=== PATIENT | female | born 1930 | race Caucasian/White ===

== ENCOUNTER 2017-02-03 09:41 | Emergency (ER) | payer OTHER ==
[~2017-02-03] VITALS: Ht 152.4 cm; Wt 90.0 kg
[~2017-02-03 09:41] MED LIST: CHOL1TAB PO; CLTP PO; DENO60SO SQ; DIPH25CA37 PO; GABA-112 PO; ISOS30TA3 PO; MULT-506 PO; POLY335025 PO; PRLSR20 PO; RANI300T2 PO; SIMV20TA2 PO
[2017-02-03 09:50] VITALS: TEMP 36.4; Ht 152.4 cm; Wt 90.0 kg
[2017-02-03] MEDS ORDERED: CALCTAB7 PO (10:16)
[2017-02-03] MEDS ORDERED: CHOL1000 PO (10:18)
[2017-02-03] MEDS ORDERED: LISI-789 PO (10:23)
[2017-02-03] MEDS ORDERED: AMLO2.5T PO (10:26)
[2017-02-03] MEDS ORDERED: ASPI81TA28 PO (10:26)
[2017-02-03] MEDS ORDERED: MAGN400T6 PO (10:26)
[2017-02-03 10:34] VITALS: O2SAT 95
[2017-02-03 10:57] LABS: BASO % 0.1 %; BASO ABS # 0.01 K/uL (0-0.2); COMPLETE YES; IG% 0.4 %; LYMPH ABS # 2.01 K/uL (1.2-3.4); MEAN CELL VOLUME 94.7 fL (80-100); MEAN CORPUSCULAR HEMOGLOBIN 32.8 pg (25-34); MEAN CORPUSCULAR HGB CONC 34.6 g/dl (32-36); MEAN PLATELET VOLUME 8.8 fL (7.4-10.4); MONO % 10.8 %; NEUT % 69.7 %; PLATELET COUNT 250 K/uL (130-400); RED BLOOD COUNT 4.33 M/uL (4.2-5.4); WHITE BLOOD COUNT 11.16 K/uL (4.8-10.8)
[2017-02-03] MEDS ORDERED: SODIUM CHLORIDE 0.9% 500ML 500 ML IV STA (11:10)
[2017-02-03 11:18] LABS: CALCIUM 8.9 mg/dl (8.5-10.1); CREATININE 0.8 mg/dl (0.60-1.20); POTASSIUM 4.2 mmol/L (3.5-5.1)
[2017-02-03 11:44] LABS: URINE APPEARANCE CLEAR (CLEAR); URINE BILIRUBIN NEG (NEG); URINE COLOR DK YELLOW; URINE NITRITE NEG (NEG); URINE SPECIFIC GRAVITY 1.011 (1.000-1.030); UROBILINOGEN NEG (NEG); ZZUR CULT IF INDIC CLEAN CATCH NO
[2017-02-03 11:50] LABS: MANUAL MICROSCOPIC REQUIRED? NO; REVIEW REQ? NO
--- NOTE | 2017-02-03 12:06 | DIAGNOSTIC IMAGING REPORT ---
CT SCAN OF THE ABDOMEN AND PELVIS WITHOUT IV CONTRAST CLINICAL HISTORY: Lower abdominal pain. COMPARISON STUDY: Abdominal CT dated 01/06/2014. TECHNIQUE: CT scan of the abdomen and pelvis is performed from the lung bases to the proximal femora. Images are reviewed in the axial, sagittal, and coronal planes. IV contrast was not administered for this examination as per the referring clinician. Note that the examination was performed in suboptimal fashion but oral and IV contrast. Automated dose control exposure was utilized. CT DOSE: 863.07 mGy.cm FINDINGS: Lung bases: The heart is mildly enlarged and without pericardial effusion. There are coronary calcifications. There is mixed attenuation of the cardiac blood pool as compared to the myocardium suggesting anemia. A small hiatal hernia is noted. The lung bases are clear noting dependent atelectasis. Liver: The unenhanced liver is top normal in size and normal in contour. The liver demonstrates diffusely diminished attenuation consistent with mild hepatic steatosis. Fatty sparing is noted adjacent to the gallbladder fossa. There is no intrahepatic biliary ductal dilatation. Gallbladder: Unremarkable. Spleen: Normal in size and attenuation. Pancreas: There is moderate glandular atrophy of the pancreas. Coarse calcifications are noted in the pancreatic head suggesting chronic pancreatitis. There is a 2.7 x 3.0 cm lobulated water attenuation lesion identified in the distal pancreatic body/tail seen on image #98. The pancreatic duct is normal in caliber. Adrenal glands: Unremarkable. Kidneys: The unenhanced kidneys are atrophic and without hydronephrosis. There are no renal calculi identified. There is no evidence of contour deforming renal mass lesion. Abdominal vasculature: The abdominal aorta is normal in course and caliber noting mild atherosclerotic calcification. Bowel: No bowel obstruction is seen. There is moderate sigmoid diverticulosis without CT evidence of acute diverticulitis. Mild diverticular disease is noted throughout the remainder of the colon. There is a ventral hernia containing a nonobstructed segment of the transverse colon. Aoxc-[id number] colonic fecal retention is observed. The appendix is not identified and reported surgically absent. Peritoneum: There is no intraperitoneal free air or abdominal ascites. Lymphadenopathy: None. Pelvic viscera: The bladder is normal as visualized. The uterus is surgically absent. No adnexal lesion is seen. There are numerous calcified pelvic phleboliths. Skeletal structures: The skeletal structures are osteopenic. There is moderate lumbosacral spondylosis as well as scoliosis. A moderate chronic compression deformity is again seen involving L1. Vertebral body height is otherwise maintained throughout the lumbar spine. Grade 1 anterolisthesis is seen at L5-S1. No lytic or blastic lesions are seen. IMPRESSION: 1. Suboptimal examination without oral and IV contrast. 2. There are no acute infectious or inflammatory findings in the abdomen or pelvis. 3. Moderate colonic diverticulosis without CT evidence of acute diverticulitis. 4. A ventral hernia contains a nonobstructed segment of the transverse colon. 5. There is a 3.0 cm lobulated water density lesion in the distal pancreatic body/tail. This is much more conspicuous than on the 2014 examination, and the appearance suggests a mucinous cystic neoplasm, a serous cystadenoma, or a large IPMN. This is not consistent with a pancreatic adenocarcinoma. A nonemergent pancreas protocol CT scan or MRI could be obtained for further interrogation. Alternatively, endoscopic ultrasound with biopsy would be more definitive. 6. Mild hepatic steatosis. 7. Additional changes as above. Electronically signed by: Rg Alfaro M.D. 02/03/2017 12:05 PM Dictated Date/Time: 02/03/2017 11:54 AM
[2017-02-03 13:15] VITALS: BP 98/63; PULSE 65; O2SAT 96
--- NOTE | 2017-02-03 17:51 | EMERGENCY ROOM VISIT NOTE ---
History Report prepared by Han: Jennie Edgar Under the Supervision of: Dr. Miguel Patrick D.O. First contact with patient: 10:56 Chief Complaint: OTHER COMPLAINT Stated Complaint: SHAKES History of Present Illness The patient is a 86 year old female who presents to the Emergency Room with complaints of persistent shakiness starting 0815 this morning. She reports that as she was leaving her home, she started shaking so severely that she almost fell. She did not fall. She called the doctor's office who told her to present to the ED. She has never experienced this shaking before. She shaking was present mostly in the upper part of her body. She was talking and making sense to her family. She feels better now, but not completely normal. She reports she has not been eating well for the past 1-2 weeks because she has been feeling bloated and nauseous after eating. She denies any cough, rhinorrhea, headache, dizziness, sore throat, vomiting, diarrhea, dysuria, melena, chest pain, SOB, weakness or numbness in arms or legs. She had a bowel movement this morning which was normal. She takes aspirin daily. Patient has no other complaints with the exception of feeling shaky. Source of History: patient Onset: 0815 this morning Position: other (global) Quality: other (shaking) Timing: other (persistent) Associated Symptoms: No SOB, No chest pain, No cough, No diarrhea, No headache, No melena, No nausea, No numbness, No sorethroat, No vomiting, No weakness Review of Systems See HPI for pertinent positives & negatives. A total of 10 systems reviewed and were otherwise negative. Past Medical & Surgical Medical Problems: (1) HTN (hypertension) Family History Diabetes mellitus FH: cancer FH: heart disease FH: lung disease Hypertension Kidney disease or stones Social History Smoking Status: Never Smoker Alcohol Use: none Drug Use: none Marital Status: Housing Status: lives with family Current/Historical Medications Scheduled Amlodipine (Norvasc), 2.5 MG PO DAILY Aspirin (Aspirin Ec), 81 MG PO DAILY Calcium Carbonate-Vitamin D W/ (Caltrate 600 Plus), 1 TAB PO DAILY Cholecalciferol (Vitamin D3), 1 TAB PO DAILY Denosumab (Prolia), 60 MG SQ [id number] Isosorbide Mononitrate Ext Rel (Imdur Ext Rel), 30 MG PO QAM Lisinopril (Zestril), 2.5 MG PO DAILY Magnesium Oxide (Mag-Ox), 400 MG PO DAILY Multivitamin (Multivitamin), 1 TAB PO DAILY Omeprazole (Prilosec), 20 MG PO DAILY Ranitidine (Zantac), 300 MG PO HS Scheduled PRN Polyethylene Glycol 3350 (Miralax), 1 TBS PO DAILY PRN for Constipation Allergies Coded Allergies: Iodinated Contrast Media (Verified Allergy, Unknown, HIVES, 02/03/17) Levofloxacin (Unverified Allergy, Unknown, HIVES, 02/03/17) Sulindac (Unverified Allergy, Unknown, HIVES, 02/03/17) Sulfa Drugs (Verified Adverse Reaction, Mild, YEAST INFECTION, 02/03/17) Physical Exam Vital Signs Date Time Temp Pulse Resp B/P Pulse Ox O2 Delivery O2 Flow Rate FiO2 02/03/17 13:15 65 22 98/63 96 02/03/17 12:21 62 02/03/17 12:16 67 22 112/68 96 Room Air 02/03/17 11:31 63 22 116/71 97 Room Air 02/03/17 10:34 95 Room Air 02/03/17 10:04 63 02/03/17 09:50 36.4 72 16 127/79 95 Room Air Physical Exam GENERAL: Sitting up in bed, no acute distress, nontoxic. EYE EXAM: normal conjunctiva, PERRL and EOM's intact OROPHARYNX: no exudate, no erythema, lips, buccal mucosa, and tongue normal and mucous membranes are moist NECK: supple, no nuchal rigidity, no adenopathy, non-tender LUNGS: Clear to auscultation. Normal chest wall mechanics HEART: no murmurs, S1 normal and S2 normal ABDOMEN: abdomen soft, non-tender, normo-active bowel sounds, no masses, no rebound or guarding. BACK: Back is symmetrical on inspection and there is no deformity, no midline tenderness, no CVA tenderness. SKIN: no rashes and no bruising UPPER EXTREMITIES: upper extremities are grossly normal. LOWER EXTREMITIES: No pitting edema. NEURO EXAM: Normal sensorium, cranial nerves II-XII intact, normal speech, no weakness of arms, no weakness of legs. No drift. Finger to nose intact. Gross sensation intact. Medical Decision & Procedures ER Provider Diagnostic Interpretation: Radiology results have been interpreted by the radiologist and reviewed by me. CT SCAN OF THE ABDOMEN AND PELVIS WITHOUT IV CONTRAST CLINICAL HISTORY: Lower abdominal pain. COMPARISON STUDY: Abdominal CT dated 01/06/2014. TECHNIQUE: CT scan of the abdomen and pelvis is performed from the lung bases to the proximal femora. Images are reviewed in the axial, sagittal, and coronal planes. IV contrast was not administered for this examination as per the referring clinician. Note that the examination was performed in suboptimal fashion but oral and IV contrast. Automated dose control exposure was utilized. CT DOSE: 863.07 mGy.cm FINDINGS: Lung bases: The heart is mildly enlarged and without pericardial effusion. There are coronary calcifications. There is mixed attenuation of the cardiac blood pool as compared to the myocardium suggesting anemia. A small hiatal hernia is noted. The lung bases are clear noting dependent atelectasis. Liver: The unenhanced liver is top normal in size and normal in contour. The liver demonstrates diffusely diminished attenuation consistent with mild hepatic steatosis. Fatty sparing is noted adjacent to the gallbladder fossa. There is no intrahepatic biliary ductal dilatation. Gallbladder: Unremarkable. Spleen: Normal in size and attenuation. Pancreas: There is moderate glandular atrophy of the pancreas. Coarse calcifications are noted in the pancreatic head suggesting chronic pancreatitis. There is a 2.7 x 3.0 cm lobulated water attenuation lesion identified in the distal pancreatic body/tail seen on image #98. The pancreatic duct is normal in caliber. Adrenal glands: Unremarkable. Kidneys: The unenhanced kidneys are atrophic and without hydronephrosis. There are no renal calculi identified. There is no evidence of contour deforming renal mass lesion. Abdominal vasculature: The abdominal aorta is normal in course and caliber noting mild atherosclerotic calcification. Bowel: No bowel obstruction is seen. There is moderate sigmoid diverticulosis without CT evidence of acute diverticulitis. Mild diverticular disease is noted throughout the remainder of the colon. There is a ventral hernia containing a nonobstructed segment of the transverse colon. Fhed-rs-[id number] colonic fecal retention is observed. The appendix is not identified and reported surgically absent. Peritoneum: There is no intraperitoneal free air or abdominal ascites. Lymphadenopathy: None. Pelvic viscera: The bladder is normal as visualized. The uterus is surgically absent. No adnexal lesion is seen. There are numerous calcified pelvic phleboliths. Skeletal structures: The skeletal structures are osteopenic. There is moderate lumbosacral spondylosis as well as scoliosis. A moderate chronic compression deformity is again seen involving L1. Vertebral body height is otherwise maintained throughout the lumbar spine. Grade 1 anterolisthesis is seen at L5-S1. No lytic or blastic lesions are seen. IMPRESSION: 1. Suboptimal examination without oral and IV contrast. 2. There are no acute infectious or inflammatory findings in the abdomen or pelvis. 3. Moderate colonic diverticulosis without CT evidence of acute diverticulitis. 4. A ventral hernia contains a nonobstructed segment of the transverse colon. 5. There is a 3.0 cm lobulated water density lesion in the distal pancreatic body/tail. This is much more conspicuous than on the 2014 examination, and the appearance suggests a mucinous cystic neoplasm, a serous cystadenoma, or a large IPMN. This is not consistent with a pancreatic adenocarcinoma. A nonemergent pancreas protocol CT scan or MRI could be obtained for further interrogation. Alternatively, endoscopic ultrasound with biopsy would be more definitive. 6. Mild hepatic steatosis. 7. Additional changes as above. Electronically signed by: Rg Alfaro M.D. 02/03/2017 12:05 PM Dictated Date/Time: 02/03/2017 11:54 AM Laboratory Results 02/03/17 10:43 Red Blood Count 4.33, Mean Corpuscular Volume 94.7, Mean Corpuscular Hemoglobin 32.8, Mean Corpuscular Hemoglobin Concent 34.6, Mean Platelet Volume 8.8, Neutrophils (%) (Auto) 69.7, Lymphocytes (%) (Auto) 18.0, Monocytes (%) (Auto) 10.8, Eosinophils (%) (Auto) 1.0, Basophils (%) (Auto) 0.1, Neutrophils # (Auto ) 7.78, Lymphocytes # (Auto) 2.01, Monocytes # (Auto) 1.21, Eosinophils # (Auto ) 0.11, Basophils # (Auto) 0.01 02/03/17 10:43 Test 02/03/17 10:43 02/03/17 11:25 White Blood Count 11.16 K/uL (4.8-10.8) Red Blood Count 4.33 M/uL (4.2-5.4) Hemoglobin 14.2 g/dL (12.0-16.0) Hematocrit 41.0 % (37-47) Mean Corpuscular Volume 94.7 fL (80-100) Mean Corpuscular Hemoglobin 32.8 pg (25-34) Mean Corpuscular Hemoglobin Concent 34.6 g/dl (32-36) Platelet Count 250 K/uL (130-400) Mean Platelet Volume 8.8 fL (7.4-10.4) Neutrophils (%) (Auto) 69.7 % Lymphocytes (%) (Auto) 18.0 % Monocytes (%) (Auto) 10.8 % Eosinophils (%) (Auto) 1.0 % Basophils (%) (Auto) 0.1 % Neutrophils # (Auto) 7.78 K/uL (1.4-6.5) Lymphocytes # (Auto) 2.01 K/uL (1.2-3.4) Monocytes # (Auto) 1.21 K/uL (0.11-0.59) Eosinophils # (Auto) 0.11 K/uL (0-0.5) Basophils # (Auto) 0.01 K/uL (0-0.2) RDW Standard Deviation 52.0 fL (36.4-46.3) RDW Coefficient of Variation 15.1 % (11.5-14.5) Immature Granulocyte % (Auto) 0.4 % Immature Granulocyte # (Auto) 0.04 K/uL (0.00-0.02) Anion Gap 8.0 mmol/L (3-11) Est Creatinine Clear Calc Drug Dose 49.5 ml/min Estimated GFR () 76.8 Estimated GFR (Non- 66.3 BUN/Creatinine Ratio 18.0 (10-20) Calcium Level 8.9 mg/dl (8.5-10.1) Total Bilirubin 0.4 mg/dl (0.2-1) Aspartate Amino Transf (AST/SGOT) 20 U/L (15-37) Alanine Aminotransferase (ALT/SGPT) 32 U/L (12-78) Alkaline Phosphatase 60 U/L (45-117) Total Protein 7.2 gm/dl (6.4-8.2) Albumin 3.6 gm/dl (3.4-5.0) Globulin 3.6 gm/dl (2.5-4.0) Albumin/Globulin Ratio 1.0 (0.9-2) Urine Color DK YELLOW Urine Appearance CLEAR (CLEAR) Urine pH 7.0 (4.5-7.5) Urine Specific [place] 1.011 (1.000-1.030) Urine Protein NEG (NEG) Urine Glucose (UA) NEG (NEG) Urine Ketones NEG (NEG) Urine Occult Blood NEG (NEG) Urine Nitrite NEG (NEG) Urine Bilirubin NEG (NEG) Urine Urobilinogen NEG (NEG) Urine Leukocyte Esterase TRACE (NEG) Urine WBC (Auto) 1-5 /hpf (0-5) Urine RBC (Auto) 0-4 /hpf (0-4) Urine Hyaline Casts (Auto) 0 /lpf (0-5) Urine Epithelial Cells (Auto) 10-20 /lpf (0-5) Urine Bacteria (Auto) NEG (NEG) Laboratory results per my review. Medications Administered Medications (Trade) Dose Ordered Sig/Lora Route Start Time Stop Time Status Last Admin Dose Admin Sodium Chloride (Nss 500ml) 500 ml @ 999 mls/hr Q31M STAT IV 02/03/17 11:10 02/03/17 11:40 DC 02/03/17 11:19 999 MLS/HR ECG Indication: weakness Rate (beats per minute): 63 Rhythm: sinus rhythm Findings: Q waves (Inferior), other (normal axis) Comparison ECG Date: 01-Nov-14 Change: no significant change ED Course ED COURSE: Vital signs were reviewed and showed normal vitals. The patients medical record was reviewed The above diagnostic studies were performed and reviewed. ED treatments and interventions as stated above. 1102: The patient was evaluated in room C9. A complete history and physical examination was performed. 1110: NSS 500 ml @ 999 mls/hr IV. 1258: Upon reevaluation, the patient is resting comfortably.I discussed my findings with the patient and she understands and agrees with the treatment plan. Based on the patients age, coexisting illnesses, exam and lab findings the decision to treat as an outpatient was made. The patient remained stable while under my care. The patient appeared well at the time of discharge. Medical Decision Differential Diagnosis includes but is not limited to dehydration, stroke, anemia, hypoglycemia, hyponatremia, hypernatremia, urinary tract infection, pneumonia, bronchitis, sepsis, gastroenteritis, additional abdominal pathology, metabolic abnormalities and infections. Patient is an 86-year-old female who presents the ER for an episode of shaking this prior to arrival. She has no other complaints with the exception of this. Labs show no significant leukocytosis or anemia. BMP along with LFTs, bilirubin and UA was negative. CT of her out and pelvis was performed as she has had previous trouble eating. Imaging of the abdomen was performed and was unremarkable. It did show a 3 cm pancreatic fluid mass at the distal christopher of the pancreas. I do not believe that this is the cause of her symptoms at this time of chest importance of having this followed up. She is completely neurologically intact on my exam. Patient was discharged follow-up with her primary care doctor. Discussed with Pt concerning signs and symptoms to watch out for. Pt was instructed to follow up with their PCP and discussed with the patient their option to return to the ED at anytime for persistent or worsening symptoms. The appropriate anticipatory guidance and out-patient management, including indications for return to the emergency department, were explained at length to the patient and understood. Impression Primary Impression: Shakiness Additional Impressions: Weak Pancreatic mass Scribe Attestation The scribe's documentation has been prepared under my direction and personally reviewed by me in its entirety. I confirm that the note above accurately reflects all work, treatment, procedures, and medical decision making performed by me. Departure Information Dispostion Home / Self-Care Referrals Amari Lopez D.O. (PCP) Forms HOME CARE DOCUMENTATION FORM, IMPORTANT VISIT INFORMATION, WORK / SCHOOL INSTRUCTIONS Patient Instructions ED Weakness Jacqui SH[facility] Additional Instructions Please follow up with your primary care doctor with in the next 24 hours. Any worsening of your symptoms, please return to the ED immediately. This includes fevers greater than 100.4, unable to eat or drink, passing out, diffuse body shaking, or any other concerning signs or symptoms from your standpoint. Please make sure you have the 3 cm pancreatic mass followed up by your primary care doctor within the week. Problem Qualifiers
== END 2017-02-03 13:15 | disposition home or self-care (01) ==
LOC: C.EDB 09:46 → C.EDC 13:15
DX: R25.1 Tremor, unspecified (principal); R53.1 Weakness; K86.9 Disease of pancreas, unspecified; I10 Essential (primary) hypertension; Z83.3 Family history of diabetes mellitus; Z80.9 Family history of malignant neoplasm, unspecified; Z82.49 Family history of ischemic heart disease and other diseases of the circulatory system; Z83.6 Family history of other diseases of the respiratory system; Z84.1 Family history of disorders of kidney and ureter; Z79.82 Long term (current) use of aspirin; Z79.899 Other long term (current) drug therapy

== ENCOUNTER 2017-06-06 18:08 | Emergency (ER) | payer OTHER ==
[~2017-06-06 18:08] MED LIST changes: +AMLO2.5T PO; +ASPI81TA28 PO; +CALCTAB7 PO; +CHOL1000 PO; -CHOL1TAB PO; -CLTP PO; -DIPH25CA37 PO; -GABA-112 PO; +LISI-789 PO; +MAGN400T6 PO; -SIMV20TA2 PO
[2017-06-06 18:11] VITALS: TEMP 36.3; Ht 162.6 cm
[2017-06-06] MEDS ORDERED: OXYCODONE HCL IR 5 MG TAB (IMMEDIATE RELEASE) PO STA (18:29)
[2017-06-06] MEDS ORDERED: ACET325T96 PO (18:47)
--- NOTE | 2017-06-06 19:25 | DIAGNOSTIC IMAGING REPORT ---
LUMBAR SPINE WITHOUT CT DOSE: 532.79 mGycm HISTORY: Pain L hip/back pain TECHNIQUE: Multiaxial CT images of the lumbar spine were performed and reformatted in the sagittal and coronal plane without the use of contrast. A dose lowering technique was utilized adhering to the principles of ALARA. COMPARISON: 02/03/2017 FINDINGS: Considerable degenerative changes throughout. Compression deformity L1 unchanged from the prior exam. No new or interval finding. Considerable degenerative disc changes throughout. Unchanging grade 1 anterolisthesis L5 on S1. Vacuum discs throughout. IMPRESSION: 1. Old compression deformity L1. 2. 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 3. No acute bony abnormality. The above report was generated using voice recognition software. It may contain grammatical, syntax or spelling errors. Electronically signed by: Jose Daniel Zarate M.D. 06/06/2017 7:24 PM Dictated Date/Time: 06/06/2017 7:20 PM
--- NOTE | 2017-06-06 19:30 | DIAGNOSTIC IMAGING REPORT ---
PELVIS NO IV/ORAL CONT (CT) CLINICAL HISTORY: L hip/back pain pain TECHNIQUE: Transaxial acquisition with multi axial reformatted images. COMPARISON STUDY: 02/03/2017 FINDINGS: Significant degenerative change of the hips bilaterally. Degenerative change of the sacroiliac joints. No acute bony abnormality. Bowel pattern appears nonobstructive. There is a ventral hernia containing several small bowel loops. This is nonobstructive pattern. IMPRESSION: Considerable degenerative change. No acute bony abnormality. The above report was generated using voice recognition software. It may contain grammatical, syntax or spelling errors. Electronically signed by: Jose Daniel Zarate M.D. 06/06/2017 7:28 PM Dictated Date/Time: 06/06/2017 7:24 PM
--- NOTE | 2017-06-06 19:32 | DIAGNOSTIC IMAGING REPORT ---
LEFT HIP-LOWER EXTREMITY WITHOUT CT DOSE: HISTORY: Pain L hip/back pain TECHNIQUE: Multiaxial CT images of the left hip were performed and reformatted in the sagittal and coronal plane without the use of contrast. A dose lowering technique was utilized adhering to the principles of ALARA. COMPARISON: None. FINDINGS: Degenerative change left hip. No acute bony abnormality. Cortical margins are intact. No evidence for acetabular protrusion. IMPRESSION: No fractures. The above report was generated using voice recognition software. It may contain grammatical, syntax or spelling errors. Electronically signed by: Jose Daniel Zarate M.D. 06/06/2017 7:31 PM Dictated Date/Time: 06/06/2017 7:28 PM
[2017-06-06] MEDS ORDERED: OXYC1TAB3 PO (20:14)
[2017-06-06] MEDS ORDERED: OXYCODONE IR HOME PACK PO ONE (20:30)
--- NOTE | 2017-06-06 20:31 | EMERGENCY ROOM VISIT NOTE ---
ED Visit Note First contact with patient: 18:14 Pt seen and examined at bedside after discussion with the patient and family regarding her sx and evaluation here. Pt verbalized understanding of all results. Discussed f/u with PCP, sx to watch/return for, use of pain meds, she verbalized understanding and was agreeable with plan. Pt ambulated here with her walker with a steady gait. Family comfortable taking the patient home.
[2017-06-06 20:33] VITALS: BP 132/76; PULSE 77; O2SAT 97
--- NOTE | 2017-06-06 20:36 | EMERGENCY ROOM VISIT NOTE ---
History First contact with patient: 18:14 Chief Complaint: HIP PAIN Stated Complaint: HIP PAIN-DIFFICULTY WALKING History of Present Illness The patient is a 86 year old female who presents to the Emergency Room with complaints of severe left hip pain. The patient reports that her pain started this morning after awakening. After she got up, she sat down on the bed to put on her stockings and experienced severe left buttock pain. She tried to throw her leg up on the bed which made her pain worse. She was able to get up and go to the kitchen with resolution of her pain. The patient reports that she had no pain and actually went to water therapy class this morning. She had no pain after her class, and therefore elected to go to [employer]. As she was walking into the store, she again got severe pain in the left buttock. She reports that the bone she sits on is what is hurting. It does not radiate into the front of the hip or down the leg. She also has no pain radiating up the back. She has not noticed any recent pelvic pain, constipation or urinary symptoms. She has had no recent abdominal pain, nausea or vomiting. The patient does report that she has had a prior history of lower back problems, but has never had pain like this with her back. She now reports that any movement of the left hip worsens her pain to a 10 out of 10. Review of Systems 10 system review was performed and was negative except for pertinent positives and negatives as indicated in history of present illness Past Medical/Surgical History Medical Problems: (1) HTN (hypertension) Family History Diabetes mellitus FH: cancer FH: heart disease FH: lung disease Hypertension Kidney disease or stones Social History Smoking Status: Never Smoker Alcohol Use: none Drug Use: none Marital Status: Housing Status: lives with family Current/Historical Medications Scheduled Amlodipine (Norvasc), 2.5 MG PO DAILY Aspirin (Aspirin Ec), 81 MG PO HS Calcium Carbonate-Vitamin D W/ (Caltrate 600 Plus), 1 TAB PO DAILY Cholecalciferol (Vitamin D3), 1 TAB PO DAILY Denosumab (Prolia), 60 MG SQ [id number] Isosorbide Mononitrate Ext Rel (Imdur Ext Rel), 30 MG PO QAM Lisinopril (Zestril), 2.5 MG PO DAILY Magnesium Oxide (Mag-Ox), 400 MG PO QPM Multivitamin (Multivitamin), 1 TAB PO DAILY Omeprazole (Prilosec), 20 MG PO DAILY Polyethylene Glycol 3350 (Miralax), 1 TBS PO DAILY Ranitidine (Zantac), 300 MG PO HS Scheduled PRN Acetaminophen Tab (Tylenol), 650 MG PO Q6 PRN for Pain Oxycodone Ir (Roxicodone Ir), 1 TAB PO Q4H PRN for Pain Physical Exam Vital Signs Date Time Temp Pulse Resp B/P (MAP) Pulse Ox O2 Delivery O2 Flow Rate FiO2 06/06/17 18:11 36.3 73 18 127/79 95 Room Air Physical Exam CONSTITUTIONAL: Healthy and well nourished. Alert and oriented X 3 with positive affect. Patient appears in moderate discomfort from pain. HEENT: Normocephalic, atraumatic. Pupils equal, round and reactive. NECK: Full active range of motion without discomfort. RESPIRATORY: Clear to auscultation bilaterally with no wheezing, crackles, rhonchi or stridor. CARDIOVASCULAR: Regular rate and rhythm with no murmurs, rubs or gallops. GASTROINTESTINAL: Bowel sounds present in all quadrants. Soft and nontender to palpation. MUSCULOSKELETAL: Examination shows discomfort with any internal or external rotation of the left hip. She has no tenderness to palpation over the greater trochanteric region. She is tender through the left SI joint and sciatic notch. Positive straight leg raise. She does not have any significant tenderness to palpation through the lower lumbar spine or paraspinous muscles. Pedal pulses are intact. Ankle plantar/dorsiflexion strength is 5 out of 5 and symmetric bilaterally. INTEGUMENTARY: No rash or other significant dermatologic conditions noted. NEUROLOGIC: Left foot and toes are sensory intact. Medical Decision & Procedures ER Provider Diagnostic Interpretation: Noncontrast CT of the lumbar spine, pelvis and left hip shows degenerative changes without evidence for acute fractures or dislocations. An old L1 compression fracture is noted. Radiologist report of the lumbar spine is as follows: LUMBAR SPINE WITHOUT CT DOSE: 532.79 mGycm HISTORY: Pain L hip/back pain TECHNIQUE: Multiaxial CT images of the lumbar spine were performed and reformatted in the sagittal and coronal plane without the use of contrast. A dose lowering technique was utilized adhering to the principles of ALARA. COMPARISON: 02/03/2017 FINDINGS: Considerable degenerative changes throughout. Compression deformity L1 unchanged from the prior exam. No new or interval finding. Considerable degenerative disc changes throughout. Unchanging grade 1 anterolisthesis L5 on S1. Vacuum discs throughout. IMPRESSION: 1. Old compression deformity L1. 2. 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 3. No acute bony abnormality. Medications Administered Medications (Trade) Dose Ordered Sig/Lora Route Start Time Stop Time Status Last Admin Dose Admin Oxycodone HCl (Roxicodone Immediate Rel Tab) 5 mg NOW STAT PO 06/06/17 18:29 06/06/17 18:31 DC 06/06/17 18:40 5 MG ED Course Patient history and physical exam were performed. Nurse's notes were reviewed. Vital signs were reviewed and normal. The patient appears in moderate discomfort, and requested medication for her pain. She was administered OxyIR [address] of the lumbar spine, pelvis and hip does not show any acute injuries. An old L1 compression fracture is noted. The patient was able to trial ambulate with pain rated a 5 out of 10. She felt well enough to go home. The patient does have a walker at home. She was instructed to avoid sitting for long periods of time. She was encouraged to take Tylenol for baseline pain relief. She was provided a home pack and prescription for OxyIR 5 mg. The patient was warned about sedation and constipation while taking this medication. Was instructed to follow-up with her PCP early next week for reevaluation, and return to the emergency department for any uncontrollable pain , left lower extremity weakness, foot drop, saddle anesthesias, bladder/bowel incontinence or other concerning symptoms. The patient was happy with plan of care, and voiced understanding of all discharge instructions. The patient was also seen and examined by Dr. Howell, ED attending physician, who agrees with workup and plan of care. Medical Decision [place] Drug Monitoring Program Search Results: patient reviewed within database, no issues identified Medication Reconcilliation Current Medication List: was personally reviewed by me Blood Pressure Screening Patient's blood pressure: Normal blood pressure Impression Primary Impression: Left sided sciatica Departure Information Prescriptions Oxycodone Ir (Roxicodone Ir) 5 Mg Tab 1 TAB PO Q4H Y for Pain, #15 TAB For Initial Treatment Prov: Kirit Batres PA 06/06/17 Referrals Amari Lopez D.O. (PCP) Patient Instructions [facility]
== END 2017-06-06 20:34 | disposition home or self-care (01) ==
LOC: C.EDB 18:09
DX: M54.42 Lumbago with sciatica, left side (principal); I10 Essential (primary) hypertension; Z83.3 Family history of diabetes mellitus; Z80.9 Family history of malignant neoplasm, unspecified; Z82.49 Family history of ischemic heart disease and other diseases of the circulatory system; Z84.1 Family history of disorders of kidney and ureter; Z79.899 Other long term (current) drug therapy; Z79.82 Long term (current) use of aspirin